=== PATIENT | female | born 1975 | race Caucasian/White ===

== ENCOUNTER 2020-11-05 14:04 | Emergency (ER) | payer SELFPAY | END 2020-11-05 21:09 | disposition home or self-care (01) | LOC: ERS 14:04 → EDBD 14:04 → ERS 21:09 | DX: F15.159 Other stimulant abuse with stimulant-induced psychotic disorder, unspecified (principal) | CPT/HCPCS: 99284 ==

== ENCOUNTER 2020-12-21 19:53 | Inpatient (IN) | payer SELFPAY ==
[2020-12-21] MEDS ORDERED: Fentanyl 100 MCG/2 ML VIAL ONE (20:02)
[2020-12-21] MEDS ORDERED: Boostrix 0.5 ML (Tdap) VIAL ONE (20:09)
[2020-12-21] MEDS ORDERED: Lidocaine 1% w/Epinephrine 1:100K 20 ML VIAL ONE ×2 (20:09→21:01)
[2020-12-21] MEDS ORDERED: Ondansetron PF 4 MG/2 ML Vial ONE ×2 (20:18→21:14)
[2020-12-21 20:35] LABS: Mean Corpuscular HGB CONC 31.9 g/dL (32.0-36.0); Mean Corpuscular Hemoglobin 30.5 pg (27.0-31.0); Mean Corpuscular Volume 95.4 fL (78.0-98.0); Mean Platelet Volume 7.8 fL (7.4-10.4); Platelet Count 346 thou/uL (130-400); RBC Distribution Width 12.1 % (11.5-14.5); Red Blood Cell (RBC) Count 3.62 mill/uL (4.20-5.40); White Blood Cell (WBC) Count 16.6 thou/uL (4.8-10.8)
[2020-12-21 20:40] LABS: INR-International Normal Ratio 1.1; Prothrombin Time 14.1 sec (12.0-14.7)
[2020-12-21 20:53] LABS: Hypochromia SLIGHT = 6-15 cells (100X) (0-5/hpf); Lymphocytes 50 % (21-51); MDiff Complete? YES; Monocytes 6 % (0-10); Neutrophil 32 % (42-75); Platelet Morphology Comment Appears Adequate; Reactive Lymphocytes 12 % (0-10)
[2020-12-21 20:54] LABS: ALT (SGPT) Less than 7 U/L (8-55); AST (SGOT) 9 U/L (5-34); Albumin 3.4 g/dL (3.5-5.0); Alkaline Phosphatase 57 U/L (40-110); Anion Gap 16 mmol/L (10-20); BUN (Urea Nitrogen) 15 mg/dL (7.0-18.7); Bilirubin, Total Less than 0.2 mg/dL (0.2-1.2); Calc. Creatinine Clearance 0 mL/min (70-130); Calcium 8.2 mg/dL (7.8-10.44); Carbon Dioxide 18 mmol/L (22-29); Chloride 108 mmol/L (98-107); Globulin 2.4 g/dL (2.4-3.5); Glucose 171 mg/dL (70-105); Potassium 4.3 mmol/L (3.5-5.1); Protein, Total 5.8 g/dL (6.0-8.3); Sodium 138 mmol/L (136-145)
[2020-12-21] MEDS ORDERED: Bupivacaine PF 0.5% 30 ML VIAL ONE (21:01)
[2020-12-21] MEDS ORDERED: Fentanyl 250 MCG/5 ML VIAL ONE (21:07)
[2020-12-21] MEDS ORDERED: Midazolam HCl 2 mg/2 ml Vial ONE (21:07)
[2020-12-21] MEDS ORDERED: Dexamethasone 20 MG/5 ML VIAL ONE (21:14)
[2020-12-21] MEDS ORDERED: PROPOFOL 200 MG/20 ML VIAL ONE (21:14)
[2020-12-21] MEDS ORDERED: diphenhydrAMINE 50 MG/ML VIAL ONE (21:14)
[2020-12-21] MEDS ORDERED: Succinylcholine 200 MG/10 ml SYRINGE FS ONE (21:14)
[2020-12-21] MEDS ORDERED: Ondansetron ODT 4 MG TAB PO PRN (22:06)
[2020-12-21] MEDS ORDERED: Ondansetron PF 4 MG/2 ML Vial IVP PRN (22:06)
[2020-12-21] MEDS ORDERED: Ibuprofen 600 MG TAB PO PRN (22:10)
[2020-12-21] MEDS ORDERED: traMADol HCl 50 MG TAB PO PRN (22:10)
[2020-12-21] MEDS ORDERED: Acetaminophen 500 MG TAB PO PRN (22:10)
[2020-12-21 23:12] VITALS: BMI 27.1
[2020-12-21 23:39] LABS: Lactic Acid 1.8 mmol/L (0.5-2.2)
[2020-12-22] MEDS: Acetaminophen 325 MG TAB PO SCH ×3 (00:04→12:18)
[2020-12-22 05:34] LABS: SARS-CoV-2 PCR by NAA Not Detected (NotDetected)
[2020-12-22 05:47] LABS: #Lymphocytes 0.8 thou/uL (1.20-3.40); #Monocytes 0.1 thou/uL (0.11-0.59); #Neutrophils 11.8 thou/uL (1.40-6.50); %Eosinophils 0.2 % (0.0-10.0); %Lymphocytes 6.1 % (21.0-51.0); %Monocytes 0.5 % (0.0-10.0); %Neutrophils 93.2 % (42.0-75.0); Hemoglobin 9.6 g/dL (12.0-16.0); Mean Corpuscular HGB CONC 32.6 g/dL (32.0-36.0); Mean Corpuscular Hemoglobin 31.2 pg (27.0-31.0); Mean Corpuscular Volume 95.7 fL (78.0-98.0); Mean Platelet Volume 8.3 fL (7.4-10.4); Platelet Count 283 thou/uL (130-400); RBC Distribution Width 11.8 % (11.5-14.5); Red Blood Cell (RBC) Count 3.06 mill/uL (4.20-5.40); White Blood Cell (WBC) Count 12.7 thou/uL (4.8-10.8)
[2020-12-22] MEDS ORDERED: Oxazepam 10 MG CAP PO SCH (06:00)
[2020-12-22] MEDS ORDERED: Thiamine 100 MG TAB PO SCH (09:00)
[2020-12-22] MEDS ORDERED: Folic Acid 1 MG TAB PO SCH (09:00)
[2020-12-22] MEDS ORDERED: TETANUS, DIPHTHERIA TOX,ADULT (TDVAX) 0.5 ML VIAL IM ONE (09:00)
[2020-12-22 10:08] VITALS: TEMP 98.2
[2020-12-22 14:33] VITALS: BP 138/85
[2020-12-22] MEDS ORDERED: Enoxaparin Sodium 40 MG/0.4 ML SYRINGE SC SCH (21:00)
== END 2020-12-22 12:30 | disposition home or self-care (01) | DRG 580 ==
LOC: ERS 19:53 → SDC 21:08 → SURG A 21:08
PROVIDERS: ADMIT Specialist; ATTEND Specialist
PROC: 04Q Lower Arteries, Repair (ICD-10-PCS; principal; 2020-12-21)
PROC: 0JQQ0ZZ Repair Right Foot Subcutaneous Tissue and Fascia, Open Approach (ICD-10-PCS; 2020-12-21)
PROC: 06Q Lower Veins, Repair (ICD-10-PCS; 2020-12-21)
DX: S91.311A Laceration without foreign body, right foot, initial encounter (principal); S85.171A Laceration of posterior tibial artery, right leg, initial encounter; W25.XXXA Contact with sharp glass, initial encounter
CPT/HCPCS: 36415; 80053; 83605; 85025; 85610; 85730; 86850; 86900; 86901; 87635; 90471; 90715; 93005; 96374; 96375; G0390; J0690; J1100; J1200; J2250; J2405; J2704; J3010; S0020; U0003; U0005